=== PATIENT | female | born 1940 | race Caucasian/White ===

== ENCOUNTER 2024-03-09 20:42 | Outpatient (CLI) | payer MEDICARE, BC, SELFPAY ==
--- OUTSIDE RECORDS SUMMARY | 2024-03-09 20:46 | XMS_ITS | Clinical Summary ---
Author Name Unknown Organization [place] Address [facility] [place] [address] Care Team Providers Care Wool Dyer Name Role Phone Ace Sumner PA-C Primary Care Provider + [phone] Allergies Active Allergy Reactions Criticality Noted Date Comments Contrast Dye 09/14/2013 Epinephrine Other (See Comments) 10/30/2019 High doses. Medications Medication Sig Dispensed Refills Start Date End Date Status acetaminophen (TYLENOL) 325 MG tablet Take 325-650 mg by mouth every 6 hours as needed for mild pain Active apixaban ANTICOAGULANT (ELIQUIS) 5 MG tablet Take 5 mg by mouth 2 times daily Active atorvastatin (LIPITOR) 20 MG tablet Take 20 mg by mouth daily Active hydrochlorothiazide (HYDRODIURIL) 12.5 MG tablet Take 12.5 mg by mouth daily Active metoprolol succinate ER (TOPROL XL) 25 MG 24 hr tabletIndications:Atria l fibrillation with rapid ventricular response (H) Take 1 tablet (25 mg) by mouth daily for 30 days 30 tablet 11/12/2023 Active Active Problems Problem Noted Date Diagnosed Date Atrial fibrillation with rapid ventricular respo nse 11/10/2023 Acute congestive heart failu re, unspecified heart failure type 11/10/2023 Family History Medical History Relation Comments Breast Cancer No family hx of Ovarian Cancer No family hx of Social History Tobacco Use Types Packs/Day Years Used Date Smoking Tobacco: Never Smokeless Tobacco: Never Alcohol Use Standard Drinks/Week Comments No 0 (1 standard drink = 0.6 oz pur e alcohol) Adolescent Education Answer Date Record ed Getting School Help Needed Not on file 09/05 Sex and Gender Information Value Date Recorded Sex Assigned at Not on file Gender Identity Not on file Sexual Orientation Not on file Last Filed Vital Signs Vital Sign Reading Time Taken Comments Blood Pressure 154/85 11/13/2023 5:54 PM DISTRIBUTION TRANSFORMER ASSEMBLER Pulse 81 11/13/2023 5:54 PM [employer]ION TR[employer]FORMER ASSEMBLER Temperature 36.6 ??C (97.8 ??F) 11/13/2023 5:54 PM CS T Respiratory Rate 18 11/13/2023 5:54 PM [employer]ION TR[employer]ER ASSEMBLER Oxygen Saturation 93% 11/13/2023 8:15 PM [employer]ION TR[employer]ER ASSEMBLER Inhaled Oxygen Concentration - - Weight 92.1 kg (203 lb) 11/13/2023 5:54 PM [employer]ION TR[employer]FORMER ASSEMBLER Height 167.6 cm (5' 6) 11/10/2023 1:32 AM [employer] TR[employer]ER [employer]SEMBLER Body Mass Index 32.77 11/10/2023 1:32 AM [employer]ION TRANSFORMER ASSEMBLER Plan of Treatment Health Maintenance Due Date Last Done Comments ADVANCE CARE PLANNING 1941 ANNUAL REVIEW OF HM ORDERS 1941 DEXA 1941 HF ACTION PLAN 1941 LIPID 1941 ZOSTER IMMUNIZATION (1 of 2) 1991 RSV VACCINE ( & 60+) (1 - 1-dose 60+ series) 2001 FALL RISK ASSESSMENT 2006 ALT 07/30/2011 07/30/2010 DTAP/TDAP/TD IMMUNIZATION (1 - Tdap) 02/09/2018 02/08/2018, 01/02/2008, 03/07/1999 COVID-19 Vaccine ( season) 2023 02/28/2022, 09/19/2021, 01/30/2021, Additional history exists INFLUENZA VACCINE (#1) 2023 , 08/25/2021, 08/13/2020, Additional history exists PHQ-2 (once per calendar year) 2023 BMP 05/14/2024 11/13/2023, 10/23, 11/10/2023, Additional history exists MEDICARE ANNUAL WELLNESS VISIT 09/15/2024 09/15/2023, 09/02/2022, 07/01/2021 CBC 11/13/2024 11/13/2023, 10/23, 11/10/2023, Additional history exists Pneumococcal Vaccine: 65+ Years Completed 11/06/2015, 08/12/2011 TSH W/FREE T4 REFLEX Completed 11/09/2023 HPV IMMUNIZATION Aged Out No longer e ligible based on patient's age to complete this topic IPV IMMUNIZATION Aged Out No longer e ligible based on patient's age to complete this topic MENINGITIS IMMUNIZATION Aged Out No l onger eligible based on patient's age to complete this topic RSV MONOCLONAL ANTIBODY Aged Out No l onger eligible based on patient's age to complete this topic Procedures Procedure Name Priority Date/Time Associated Diagnosis Comments CBC WITH PLATELETS & DIFFERENTIAL STAT 11/13/2023 6:19 PM DISTRIBUTION TRANSFORMER ASSEMBLER BASIC METABOLIC PANEL STAT 11/13/2023 6:19 PM [employer]ION TR[employer]FORMER ASSEMBLER TSH WITH FREE T4 REFLEX STAT 11/09/2023 9:59 PM [employer]ION TR[employer]FORMER ASSEMBLER HEPATIC FUNCTION PANEL STAT 07/30/2010 10:15 AM CDT from Last 3 Months or Most Recently Relevant to Health Maintenance Results * (ABNORMAL) Basic metabolic panel (11/13/2023 6:19 PM DISTRIBUTION TRANSFORMER ASSEMBLER) [facility] Sodium 139 135 - 145 mmol/L 11/13/2023 6:47 PM [employer] Comment:Reference intervals for this test were updated on 08/17/2023 to more accurately reflect our healthy population. There may be differences in the flagging of prior results with similar values performed with this method. Interpretation of those prior results can be made in the context of the updated reference intervals. Potassium 4.3 3.4 - 5.3 mmol/L 11/13/2023 6:47 PM [employer] [facility] Chloride 101 98 - 107 mmol/L 11/13/2023 6:47 PM [employer] [facility] Carbon Dioxide (CO2) 27 22 - 29 mmol/L 11/13/2023 6:47 PM [employer] [facility] Anion Gap 11 7 - 15 mmol/L 11/13/2023 6:47 PM [employer] [facility] Urea Nitrogen 24.3(H) 8.0 - 23.0 mg/dL 11/13/2023 6:47 PM [employer] [facility] Creatinine 1.20(H) 0.51 - 0.95 mg/dL 11/13/2023 6:47 PM [employer] [facility] GFR Estimate 45(L) >60 mL/min/1. 73m2 11/13/2023 6:47 PM [employer] [facility] Calcium 9.1 8.8 - 10.2 mg/dL 11/13/2023 6:47 PM [employer] [facility] Glucose 103(H) 70 - 99 mg/dL 11/13/2023 6:47 PM [employer] Blood BLOOD SPECIMEN / Unknown Venipuncture / Unknown 11/13/2023 6:19 PM DIST[employer]BUTION TR[employer]FORMER ASSEMBLER 11/13/2023 6:25 PM DIST[employer]ION TR[employer]FORMER ASSEMBLER Jason Spann MD LAB - BLOOD ORDERABL ES LABORATORY [facility] [address] 1st floor, [address] [place] [address], [place] [phone] * TSH with free T4 reflex (11/09/2023 9:59 PM DISTRIBUTION TRANSFORMER ASSEMBLER) TSH 4.07 0.30 - 4.20 uIU/mL 11/09/2023 10:35 PM [employer] Blood BLOOD SPECIMEN / Unknown Venipuncture / Unknown 11/09/2023 9:59 PM DISTRI[employer]ION TR[employer]FORMER ASSEMBLER 11/09/2023 10:06 PM [employer]ION TR[employer]FORMER ASSEMBLER Jose Manuel Robledo MD LAB - BLO OD ORDERABLES LABORATORY [facility] [address] Lab (1st floor, no room number) [place] [address], [place] [phone] * Hepatic panel (07/30/2010 10:15 AM CDT) AST 26 0 - 45 U/L [facility] Protein Total 7.2 6.8 - 8.8 g/dL [facility] Albumin 3.8 3.3 - 4.9 g/dL [facility] ALT 18 0 - 50 U/L [facility] Alkaline Phosphatase 91 40 - 150 U/L [facility] Bilirubin Conjugated 0.0 0.0 - 0.3 mg/dL [facility] Bilirubin Delta 0.0 0.0 - 0.4 mg/dL [facility] Bilirubin Total 0.3 0.2 - 1.3 mg/dL [facility] 07/30/2010 10:1 5 AM CDT 07/30/2010 10:43 AM CDT Dutch Best MD LAB - BLOOD ORDERABL ES [facility] from Last 3 Months or Most Recently Relevant to Health Maintenance Advance Directives For more information, please contact: [phone] * Full Code (Latest Code Status on File) Date Activated Date Inactivated Comments 11/10/2023 1:23 AM 11/11/2023 5:26 PM All basic and advanced life-sustaining interventions are performed as appropriate Question Answer Comments Code status determined by: Discussion with tracy nt/ legal decision maker Care Teams Wool Dyer Relationship Specialty Start Date End Date Ace Sumner PA-C [facility] [address] [place] [address] PCP - General 08/12/11
--- OUTSIDE RECORDS SUMMARY | 2024-03-09 20:46 | XMS_ITS | Continuity of Care Document ---
Author Name Unknown Organization [facility] Address [address] [place] [address] Phone Care Team Providers Care Billboard Installer Name Role Phone Juan R Lopes MD Unavailable Unavailable Allergies, Adverse Reactions, Alerts Substance Reaction Status Criticality No Known Allergies Active No Inform ation Medications Medication Instructions Dosage Effective Dates (start - stop) Status Comments VITAMIN D3 (unknown strength) Not Available - Active LISINOPRIL (unknown strength) Not Available - Active Procedures Procedure Date Office/Outpatient Visit,[place] 2014 Advance Directives Directive Yes / No Effective Date File Name No Information Encounters Encounter Description Practice Location Reason(s) For Visit Diagnoses Date Provider Providers Copied on Encounter [facility], [address], [place], [id number], [place] tel:[phone] [facility] No Information 6 Moses Pete. [facility] [place], [address], [facility] [address], [place], [place], [id number] , [place]. [phone] Office/Outpat ient [facility], [address], [place], [id number], [place] tel:[phone] [facility] [place] pertension, Unspecified 5 Moses Pete. [facility], [address], [address], [place], [place], [id number] , [place]. [phone] Referring Provider: [facility] [address] [facility], [address], [place], [address]. tel:[phone] Family History Family Member Type Diagnosis Age At Onset No Information Payers Payer name Insurance type Covered democrat ID Authorcarolinaa scott(s) [employer] Medicare [facility] CI [id number] Social History Type Description Quantity Date Captured Comments Sex Female Smoking Status No Information Chief Complaint And Reason For Visit No Information Reason For Referral Reason For Referral No Information History Of Present Illness Encounter Date Complaint History Of Prese nt Illness No Information Functional Status Date Functional Assessmen t No Information Instructions Date Instruction Additional Infor mation Weight Management Related to Ove rweiebonyt Exercise education Related to Un specified Essential Hypertension Assessments Type Assessment Date No Information Patient Care Teams Name Effective Dates (start - stop) Status Members No Information
--- OUTSIDE RECORDS SUMMARY | 2024-03-09 20:46 | XMS_ITS | Continuity of Care Document ---
Author Name Unknown Organization [facility] Address [address] [address] [place] [address] Phone Care Team Providers Care Principal Consulting Engineer Name Role Phone Nadira Cantu NP Unavailable Unavaila ble Allergies, Adverse Reactions, Alerts Substance Reaction Status Criticality Gadolinium-Containing Contrast Media Acti ve No Information Medications Medication Instructions Dosage Effective Dates (start - stop) Status Comments Prilosec 20 mg capsule,delayed release take 1 capsule by oral route every day 30 minutes to 1 hour before a meal - Active Vitamin D2 50,000 unit capsule take 1 capsule by oral route every week - Active metoprolol tartrate 50 mg tablet take 0.5 tablet by oral route 2 times every day with meals 25 MG - Active lisinopril 20 mg-hydrochlorothiaz melquiades 25 mg tablet take 1 tablet by oral route every day 1.00 tablet - Active aspirin 81 mg tablet,delayed release take 1 tablet by oral route every day 81 MG - Active Procedures Procedure Date Init Hosp-da E&m Mod Severity 3 Offic/outpt E&m New Mod Sever 2 FibroScan Ultrasound, Abdominal, Limited 16 Offic/outpt E&m New Mod-hi Routine Serum Collection Gg; Iga, Igd, Igg, Igm, Ea Iron Iron Binding Capacity Ferritin Hepatitis B Surface Antibody Ag-immunoassay; Hep B Surface 6 Hep B Core Antibody Hepatitis A Antibody; Igg & Ig 16 Bilirubin; Direct Comp Metabolic Panel Bld Ct; Hg & Platelet Ct Autom 16 Advance Directives Directive Yes / No Effective Date File Name No Information Encounters Encounter Description Practice Location Reason(s) For Visit Diagnoses Date Provider Providers Copied on Encounter Init Hosp-da E&m Mod Severity [facility], [address] [address], [place], [id number], [place] tel:[phone] [facility] No Information 3 Pepe Waddell. [address] [facility], [address], [id number], [place]. [phone] Referring Provider: Ace Whipple, [address] [place] [address], [address] . tel:[phone] Offic/outpt E&m New Mod Sever [facility], [address] [address], [place], [id number], [place] tel:[phone] [facility] GI Symptoms or Concerns (chief complaint) DyspepsiaAbdom inal wall bulge Feb- 2 Amy Wilson. [address], [id number], [place]. [phone] Referring Provider: Ace Whipple, [address] [place] [address], [address] . tel:[phone] [facility], [address] [address], [place], [id number], [place] tel:[phone] [facility] No Information 0 2 Christina Mann. [address] [facility], [address], [id number], [place]. tel:[phone] [facility], [address] [address], [place], [id number], [place] tel:[phone] [facility] Inflammatory liver disease, unspecified 0 6 Desmond Vega. [address] [facility], [address], [id number], [place]. tel:[phone] Referring Provider: Ace Whipple, [address] [place], [address] . tel:[phone] [facility] [place], [address] [address], [place], [place], [id number], [place] tel:[phone] [facility] No Information lEoisa OMALLEY Barber. [address], [id number], [place]. tel:[phone] Referring Provider: Ace Whipple, [address] [place], [address] . tel:[phone] Offic/outpt E&m New Mod-hi [facility] [place], [address] [address], [place], [place], [id number], [place] tel:[phone] [facility] GI Symptoms or Concerns (chief complaint) Abdominal pain, unspecified locationHepati tisDietary counseling and surveillance Eloisa OMALLEY [facility]. [address], [id number], [place]. tel:[phone] Referring Provider: Balaji Villarreal, [address] [place] [address], [place], [address]. tel:[phone] Family History Family Member Type Diagnosis Age At Onset Mother Problem (finding) Cancer, basal cell Daughter Problem (finding) Irritable bowel syndrom e Sister Problem (finding) Sister Problem (finding) malignant melanoma Sister Problem (finding) Cancer, basal cell Father Problem (finding) Daughter Problem (finding) Alive and well Mother Problem (finding) malignant melanoma Brother Problem (finding) Immunizations Vaccine Date Status Comments SARS-COV-2 (COVID-19) vaccin e, mRNA, spike protein, LNP, preservative free, 30 mcg/0.3mL dose administered Note: [facility] bi-direct ional interface ; Source: Other Registry influenza, seasonal vaccine, quadrivalent, adjuvanted, .5mL dose, preservative free administered Note: [facility] bi-di rectional interface ; Source: Other Registry SARS-COV-2 (COVID-19) vaccin e, mRNA, spike protein, LNP, preservative free, 30 mcg/0.3mL dose administered Note: [facility] bi-direct ional interface ; Source: Other Registry SARS-COV-2 (COVID-19) vaccin e, mRNA, spike protein, LNP, preservative free, 30 mcg/0.3mL dose administered Note: [facility] bi-direct ional interface ; Source: Other Registry influenza, high dose seasona l, preservative-free administered Note: [facility] bi-direct ional interface ; Source: Other Registry Afluria Qd administered Note: [facility] bi-directional interface ; Source: Other Registry tetanus and diphtheria toxoi ds, adsorbed, preservative free, for adult use (5 Lf of tetanus toxoid and 2 Lf of diphtheria toxoid) administered Note: [facility] bi-direct ional interface ; Source: Other Registry Prevnar administered Note: [facility] bi-d irectional interface ; Source: Other Registry Pneumococcal conjugate PCV administere d Source: Other Provider influenza, high dose seasona l, preservative-free administered Note: [facility] bi-direct ional interface ; Source: Other Registry influenza, high dose seasona l, preservative-free administered Note: [facility] bi-direct ional interface ; Source: Other Registry Pneumovax 23 administered Note: [facility] bi-d irectional interface ; Source: Other Registry Influenza, seasonal, injecta ble, preservative free administered Note: [facility] bi-direct ional interface ; Source: Other Registry Pneumo (2 yrs or older)(PPV) administered Source: Other Provider Influenza, seasonal, injectable administe red Note: [facility] bi- directional interface ; Source: Other Registry Influenza, seasonal, injectable administe red Note: [facility] bi- directional interface ; Source: Other Registry Influenza, seasonal, injectable administe red Note: [facility] bi- directional interface ; Source: Other Registry Influenza, seasonal, injectable administe red Note: [facility] bi- directional interface ; Source: Other Registry influenza virus vaccine, unspecified formulation administered Note: [facility] bi-di rectional interface ; Source: Other Registry Payers Payer name Insurance type Covered constitution party ID Authoriza tion(s) Medicare NGS MB [id number] Blue Cross Medicare Supplement BL [id number] Social History Type Description Quantity Date Captured Comments Sex Female Smoking Status No Information Chief Complaint And Reason For Visit No Information Reason For Referral Reason For Referral No Information Plan Of Treatment Date Type Action Status Goal Lifestyle education regardin g diet completed Referral Ordered: FibroScan Appointment date/timeframe: 11/10/2016 ordered Referral Ordered: Ultrasound Liver Appointment date/timeframe: 11/10/2016 ordered Future Order: Lab Order Antimito chondrial Ab (AMA), Qn ([id number]), Body Site: Right Arm, Ordered on: Ordered History Of Present Illness Encounter Date Complaint History Of Prese nt Illness GI Symptoms or Concerns This pat toni is a pleasant 81-year-old female who is seen at the request of Ace CHENG for evaluation of abdominal pain. Patient reports some episodes of epigastric pain, nausea, and vomiting that have occurred over the past several months. These episodes occur once per month or less. She describes burning and indigestion in the epigastrium with associated nausea, but improved when she induces vomiting. She is not identified any specific triggers for these symptoms. She occasionally has some lower abdominal pain and constipation, but this is currently well controlled. Patient is also concerned about a bulge in her lower abdomen that makes her appear bloated. This is constant and does not seem to flare up after she eats. It is not painful. CT of the abdomen and pelvis with contrast was performed in December 2021 and showed extensive diverticulosis with some associated wall thickening in the mid sigmoid colon. Patient does not remember if she was put on antibio GI Symptoms or Concerns Very ple asant 76 year old woman presents for evaluation of abnormal abdominal imaging. Patient noted ?ventral hernia for which she sought medical attention at PCP. She underwent non-contrast CT followed by liver ultrasound. Both showed heterogenous appearance of liver. It was advised that patient gets liver MRI but that was deferred due to the presence of metal devise. Patient was referred to the hepatology clinic for further evaluation. LFTs from last year were normal. No prior histroy of chronic liver disease. No history of jaundices, ascites, GI bleeding or encephalopathy. No history of excessive alcohol use, blood transfusion, IV drugs use or tattoos. No family history of chronic liver disease. Patient has borderline hypertension with BMI of 36. No history of diabetes or hyperlipidemia. Functional Status Date Functional Assessmen t No Information Instructions Date Instruction Additional Infor mation follow-up visit with Elisabeth Amin MD 6 Months FibroScan Lifestyle education regarding di et Related to Dietary counseling and surveillance Assessments Type Assessment Date No Information Patient Care Teams Name Effective Dates (start - stop) Status Members No Information
--- OUTSIDE RECORDS SUMMARY | 2024-03-09 20:46 | XMS_ITS | Referral Summary ---
Author Name Unknown Organization [place] Address [facility] [place] [address] Care Team Providers Care Community Aide Name Role Phone Ace Sumner PA-C Primary Care Provider + [phone] Allergies Active Allergy Reactions Criticality Noted Date [...] failu re, unspecified heart failure type 11/10/2023 Social History Tobacco Use Types Packs/Day Years [...] Comments Blood Pressure 154/85 11/13/2023 5:54 PM [facility] CLERK Pulse 81 11/13/2023 5:54 PM [facility] CLERK Temperature 36.6 ??C (97.8 ??F) 11/13/2023 5:54 PM CS T Respiratory Rate 18 11/13/2023 5:54 PM [facility]ALLY CLERK Oxygen Saturation 93% 11/13/2023 8:15 PM [facility] CLERK Inhaled Oxygen Concentration - - Weight 92.1 kg (203 lb) 11/13/2023 5:54 PM [facility] CLERK Height 167.6 cm (5' 6) 11/10/2023 1:32 AM [facility] CLERK Body Mass Index 32.77 11/10/2023 1:32 AM [facility] CLERK Plan of Treatment Not on file Procedures Procedure Name Priority Date/Time Associated Diagnosis Comments CBC WITH PLATELETS & DIFFERENTIAL STAT 11/13/2023 6:19 PM [facility] CLERK BASIC METABOLIC PANEL STAT 11/13/2023 6:19 PM [facility] CLERK TSH WITH FREE T4 REFLEX STAT 11/09/2023 9:59 PM [facility] CLERK HEPATIC FUNCTION PANEL STAT 07/30/2010 10:15 AM CDT from Last 3 Months or Most Recently Relevant to Health Maintenance Results * (ABNORMAL) Basic metabolic panel (11/13/2023 6:19 PM [facility]ARF TALLY CLERK) [facility] Signature Sodium 139 135 - 145 mmol/L 11/13/2023 6:47 PM [facility] Comment:Reference intervals for this test were updated on 08/17/2023 to more accurately reflect our healthy population. There may be differences in the flagging of prior results with similar values performed with this method. Interpretation of those prior results can be made in the context of the updated reference intervals. Potassium 4.3 3.4 - 5.3 mmol/L 11/13/2023 6:47 PM [facility] Chloride 101 98 - 107 mmol/L 11/13/2023 6:47 PM [facility] Carbon Dioxide (CO2) 27 22 - 29 mmol/L 11/13/2023 6:47 PM [facility] Anion Gap 11 7 - 15 mmol/L 11/13/2023 6:47 PM [facility] Urea Nitrogen 24.3(H) 8.0 - 23.0 mg/dL 11/13/2023 6:47 PM [facility] Creatinine 1.20(H) 0.51 - 0.95 mg/dL 11/13/2023 6:47 PM [facility] GFR Estimate 45(L) >60 mL/min/1. 73m2 11/13/2023 6:47 PM [facility] Calcium 9.1 8.8 - 10.2 mg/dL 11/13/2023 6:47 PM [facility] Glucose 103(H) 70 - 99 mg/dL 11/13/2023 6:47 PM [facility] Blood BLOOD SPECIMEN / Unknown Venipuncture / Unknown 11/13/2023 6:19 PM [facility] CLERK 11/13/2023 6:25 PM [facility] CLERK Jason Spann MD LAB - BLOOD ORDERABL ES LABORATORY [facility] [address], [address] [place] [address], [place] [phone] * TSH with free T4 reflex (11/09/2023 9:59 PM WHARF TALLY CLERK) Pathologist [facility] TSH 4.07 0.30 - 4.20 uIU/mL 11/09/2023 10:35 PM [facility] Blood BLOOD SPECIMEN / Unknown Venipuncture / Unknown 11/09/2023 9:59 PM [facility]ALLY CLERK 11/09/2023 10:06 PM [facility]ALLY CLERK Jose Manuel Robledo MD LAB - BLO OD ORDERABLES LABORATORY [facility] [address] Lab (1st floor, no room number) [place] [address], [place] [phone] * Hepatic panel (07/30/2010 10:15 AM CDT) [...] Advance Directives For more information, please contact: [phone] * Full Code (Latest Code Status on File) Date Activated Date Inactivated Comments 11/10/2023 1:23 AM 11/11/2023 5:26 PM All basic and advanced life-sustaining interventions are performed as appropriate Question Answer Comments Code status determined by: Discussion with patie nt/ legal decision maker Care Teams Community Aide Relationship Specialty Start Date End Date Ace Sumner, [place] [id number] [place] [address] PCP - General 08/12/11
--- OUTSIDE RECORDS SUMMARY | 2024-03-09 20:47 | XMS_ITS | Clinical Summary ---
Author Name Unknown Organization [employer] [facility] Address [place], [place] [address] Care Team Providers Care Ironer Name Role Phone Ace Sumner Primary Care Provider [phone] Allergies Active Allergy Reactions Criticality Noted Date Comments Epinephrine Tremors 10/30/2019 High doses Iodinated Contrast Media Anaphylaxis High 01/30/2010 Hives and hypertensive crisis Medications Medication Sig Dispensed Refills Start Date End Date Status MULTIVITAMINS (MULTIVITAMIN ORAL) Take by mouth. A ctive NebulizerIndication s:Cough,Wheezing,Br onchitis Nebulizer, disposable neb kit x 4, reuseable neb kit x 1, mask x 1, filters x 1. Frequency of use: 4x daily; Medication: albuterol 1 Device 02/07/2019 Active albuterol HFA (PRO-AIR; VENTOLIN; PROVENTIL) 90 mcg/actuation inhalerIndications: Bronchitis Inhale 1-2 Puffs by mouth every 4 hours if needed for Shortness of Breath 1st choice or Wheezing 1st choice. 1 Each 11/06/2021 Active inhalational spacing deviceIndications:B ronchitis For home use. 1 Each 11/06/2021 Active Restasis 0.05 % ophthalmic emulsion Place 1 Drop into both eyes two times daily. 10/04/2022 Active albuterol (PROVENTIL; VENTOLIN) 0.042% neb solutionIndications :Acute cough,Bronchitis,Vi ral illness,Upper respiratory tract infection, unspecified type Inhale 3 mL (1.25 mg) via a nebulizer every 4 hours if needed (wheezing). 75 mL 3 03/24/2023 Active atorvastatin (LIPITOR) 20 mg tabletIndications:M ixed hyperlipidemia Take 1 Tablet (20 mg) by mouth at bedtime. 90 Tablet 3 09/15/2023 Active apixaban (Eliquis) 5 mg tabletIndications:L ongstanding persistent atrial fibrillation (HC) Take 1 Tablet (5 mg) by mouth two times daily. 180 Tablet 2 11/24/2023 Active medication order composerIndications :Vitamin deficiency Vitamin D3 with K taking 2 caps QD. 11/30/2023 Active mupirocin (BACTROBAN OINTMENT) ointmentIndications :Sore in nose Apply topically to affected area(s) three times daily. 22 g 1 12/20/2023 Active ergocalciferol (Vitamin D2) 50,000 unit capsuleIndications: Vitamin D deficiency Take 1 Capsule (50,000 units) by mouth once weekly. 12 Capsule 12/21/2023 Active predniSONE (DELTASONE) 20 mg tabletIndications:C ontrast media allergy Take 60 mg (3 tablets) at bedtime the evening before your procedure, and take 60 mg (3 tablets) the morning of your procedure 6 Tablet 12/22/2023 Active metoprolol succinate (TOPROL XL) 25 mg Sustained-Release tabletIndications:A trial fibrillation, unspecified type (HC) Take 1.5 Tablets (37.5 mg) by mouth once daily. 135 Tablet 3 02/09/2024 Active hydroCHLOROthiazide 12.5 mg tabletIndications:H TN (hypertension), benign,Bilateral lower extremity edema Take 1 Tablet (12.5 mg) by mouth once daily. 90 Tablet 3 09/15/2023 4 Discontinue d(*Med complete/Re gimen complete/Le tom of care change) metoprolol succinate (TOPROL XL) 25 mg Sustained-Release tabletIndications:A trial fibrillation, unspecified type (HC) Take 1.5 Tablets (37.5 mg) by mouth once daily. 135 Tablet 3 12/07/2023 4 Discontinue d(Reorder (E-cancel not sent)) Active Problems Problem Noted Date Diagnosed Date Acute congestive heart failu re, unspecified heart failure type 12/20/2023 Stage 3b chronic kidney disease 12/20/2023 Sleep apnea 10/31/2023 Osteoporosis without current pathological fractu re 09/29/2023 Atrial fibrillation, unspecified type 09/15/2023 Overview: Prior holter and EKG showed PAT and PAC's. 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 Diverticulosis in the sigmoid colon. 4 mm tubular adenoma in the cecum Osteopenia 10/10/2013 Obesity, Class II, BMI 35-39.9 05/25/2012 Vitamin D deficiency 08/12/2011 Hepatic cyst 01/30/2010 HTN (hypertension), benign 01/30/2010 Resolved Problems Problem Noted Date Diagnosed Date Resolved Date Sleep apnea HST- 09/30/2020 AHI-19 PSG 01/09/2016 AHI-20 01/20/2017 07/16/2021 Acute diverticulitis 10/16/2016 023 Hyperlipidemia 11/09/2014 10/09/2019 Gluten intolerance 08/12/2011 3 Encounters Date Type Department Care Team Description 03/08/2024 2:00 PM CDT Nurse/Clinic Staff Only [facility] [address] [place] [address] Cardiovascular Diagnostic Testing 03/08/2024 Telephone [facility] [address] [place] [address] [facility] 03/08/2024 Travel 03/08/2024 Telephone [facility] [address] [place] [address] Boogie Jordan MD Medication Management 03/06/2024 8:00 AM CDT Office Visit [facility] [address] [facility] [address] [address] [place] [address] Boogie Jordan MD Consult (Afib Discuss ablation Ref: Isatu Марина. Pt states feeling tired, can't walk very far. Some times notices her heart go faster but only when she has a gas bubble. ) 03/06/2024 Travel 02/09/2024 1:00 PM CDT Ancillary Procedure [facility] [address] [place] [address] 02/09/2024 Travel 02/09/2024 Telephone [facility] [address] [facility] [address] [place] [address] Tej Garcia MD Results (Zio monitor) 02/08/2024 Orders Only [facility] [address] [place] [address] Sravani Galloway 1 scan: (1-Ord) Zio Final Report 01/31/2024 Telephone [facility] [address] [place] [address] Boogie Jordan MD Appointment 01/18/2024 2:00 PM WAREHOUSE MAN Nutrition/Dietici an [facility] [address] [place] [address] Medical Nutrition Therapy 01/18/2024 Orders Only [facility] [address] [place] [address] Tej Garcia MD 1 scan: (1-Ord) EKG [facility] 01/17/24 01/17/2024 11:30 AM WAREHOUSE MAN Office Visit [facility] [address] [place] [address] Tej Garcia MD Dizzy 01/17/2024 Travel 01/05/2024 Telephone [facility] [address] [facility] [address] [place] [address] Boogie Jordan MD Reschedule EP Procedure 01/04/2024 Telephone [facility] [address] [place] [address] Ace Sumner PA Results (feels like she is missing some results ) 01/03/2024 7:30 AM WAREHOUSE MAN Office Visit [facility] [address] [facility] [address] [place] [address] Karishma Lemons, ASSISTANT BANQUET MANAGER Consult; Medication Management 01/03/2024 Travel 12/31/2023 Orders Only [address] [address] Ace Sumner PA 1 scan: (1-Ord) EKG [facility] 12/20/23 12/22/2023 9:00 AM WAREHOUSE MAN Nurse/Clinic Staff Only [address] [address] Blood Pressure (137/66 P:82) 12/22/2023 Travel 12/21/2023 4:00 PM WAREHOUSE MAN Nurse/Clinic Staff Only [facility] [address] [place] [address] Blood Pressure 12/21/[address] [address] Ace Sumner PA Blood Pressure 12/21/2023 Orders Only [address] [address] Ace Sumner PA <No scans attached> 12/20/2023 8:45 AM WAREHOUSE MAN Office Visit [address] [place] [address] Ace Sumner PA Hospital F/U (Labs per cardiologists, she is fasting) 12/20/2023 Travel 12/17/2023 Telephone [facility] [address] [facility] [address] [place] [phone] Lynne Estrada RN EP Procedure 12/16/2023 Telephone [facility] [address] [facility] [address] [place] [phone] Isatu Parish NP Results (Potassium) 12/15/2023 Telephone [facility] [address] [place] [address] Hay Pastor MD Error-please disregard 12/14/2023 10:30 AM WAREHOUSE MAN Office Visit [facility] [address] [place] [address] Hay Pastor MD Sleep Follow-up 12/14/[address] [address] Ace Sumner PA Medication Problem 12/14/[address] [address] Ace Sumner PA Follow Up (Report for PROSPER Delgadillo/) 12/14/2023 Travel 12/10/2023 11:42 AM WAREHOUSE MAN Anesthesia Event [facility] [address] [place] [address] Morris Lin MD 12/10/2023 10:04 AM WAREHOUSE MAN - 12/10/2023 2:25 PM WAREHOUSE MAN Hospital Encounter [facility] [address] [place] [address] Isatu Parish NP Lewandowski, Olivia Atrial fibrillation, unspecified type (HC) Discharge Disposition: Home Self Care 12/10/2023 Travel from Last 3 Months Immunizations Name Administration Dates Next Due AMB Influenza, IIV4 PF (=>6 mos Flulaval,Fluzone Fluarix)(Flu Clinic Only) 08/13/2020,08/13/2020 COVID-19 vaccine (AbilTo 30mcg/0.3mL) PF, MDV 09/19/2021,01/30/2021,01/09/2021 Influenza Virus, Unspecified 09/19/1998 Influenza, High-dose Inactivated 09/10/2015,10/22 Influenza, IIV3 (Age >=3 years) 10/13/20 13,09/20/2012,08/12/2011,2004,10/23/2004,10/04/2003,10/27/2002 Influenza, IIV4 08/22/2018 Influenza, Inactivated AIIV4 (Age 65+ Years) Preserv Free 09/02/2022,08/25/2021 Influenza, Inactivated IIV3 (Age 65+ Years) Preserv Free 08/17/2019 Pneumococcal Poly,23-Valent (Pneumovax) 08/12/2011 Pneumococcal conj 13-Valent (Prevnar 13) 11/06/2015 Td (Age >=7 Years) 01/02/2008,03/07/1999 Td, Preservative Free (age > = 7 Years) 02/08/2018 Family History Medical History Relation Name Comments Other Brother Juma COPD Stroke Brother Juma and Other Daughter David Baez [employer] Heart Disease Father NM and Other Maternal Grandfather probabl y old age Stroke Maternal Grandmother Cancer Mother skin Heart Disease Paternal Grandfather o f heart disease Cancer Paternal Grandmother ?? Cancer Sister 1 Shelby at 52 of c ancer in carotid Stroke Sister 2 Laine and Dementia Sister 3 Cheyanne Other Sister 3 Cheyanne Fibromyalgia Relation Name Status Comments Brother Juma Daughter David Baez Alive Father Maternal Grandfather Maternal Grandmother Mother Paternal Grandfather Paternal Grandmother Sister 1 Shelby Sister 2 Laine Sister 3 Cheyanne Social History Tobacco Use Types Packs/Day Years Used Date Smoking Tobacco: Never Passive Smoke Exposure: Never Smokeless Tobacco: Never Tobacco Cessation:Counseling Given: Not Answered Alcohol Use Standard Drinks/Week Comments Not Currently 0 (1 standard drink = 0.6 oz pur e alcohol) PHQ-2 Answer Date Recorded PHQ-2 TOTAL SCORE 1 09/15/2023 Social Connections Answer Date Recorded Frequency of Communication with Friends and Fami ly 0 09/29/2023 Financial Resource Strain Answer Date R ecorded Difficulty of Paying Living Expenses 3 09/29/2023 Difficulty of Paying Living Expenses Not on file 09/29/2023 Food Insecurity Answer Date Recorded Worried About Running Out of Food in the Last Ye ar 1 09/29/2023 Transportation Needs Answer Date Record ed Lack of Transportation (Medical) 1 09/29/2023 Housing Stability Answer Date Recorded Unable to Pay for Housing in the Last Year 1 09/29/2023 Sex and Gender Information Value Date Recorded Sex Assigned at Not on file Gender Identity Not on file Sexual Orientation Not on file Obstetrics History Last Filed Vital Signs Vital Sign Reading Time Taken Comments Blood Pressure 130/70 03/06/2024 8:01 AM CDT Pulse 80 03/06/2024 8:01 AM CDT Temperature 36.8 ??C (98.2 ??F) 12/10/2023 10:[address] Respiratory Rate 16 12/10/2023 1:15 PM WAREHOUSE MAN Oxygen Saturation 97% 03/06/2024 8:01 AM CDT Inhaled Oxygen Concentration - - Weight 94.4 kg (208 lb 3.2 oz) 03/06/2024 8:01 A M CDT Height 163.8 cm (5' 4.5) 03/06/2024 8:01 AM CDT Body Mass Index 35.19 03/06/2024 8:01 AM CDT Plan of Treatment Upcoming Encounters Date Type Department Care Team (Late st Contact Info) Description 03/20/2024 8:00 AM CDT Telemedicine [facility] [address] [place] [address] Hay Pastor MD [address] [place] [address] 04/11/2024 1:00 PM CDT Nutrition/Aws Developer [facility] [address] [place] [address] [place] [address] 08/28/2024 8:30 AM CDT Office Visit [facility] [address] [facility] [address] [place] [address] Boogie Jordan MD [address] [place] [address] Health Maintenance Due Date Last Done Comments Zoster (shingles) series for age 50+ (1 of 2) 1991 COVID-19 vaccine series ( season) 2023 02/28/2022, 09/19/2021, 01/30/2021, Additional history exists Influenza for age 65+ 07/23/2024 09/02/2022 , 08/25/2021, 08/13/2020, Additional history exists Depression screening for age 12+ 09/15/2024 09/15/2023, 08/11/2023, 09/05/2022, Additional history exists Medicare Wellness for age 65+ 09/15/2024, 09/02/2022, 07/01/2021, Additional history exists BMI (ht and wt on same day) for age 18+ 03/06/2025 03/06/2024, 12/20/2023, 12/14/2023, Additional history exists Tetanus booster 02/09/2028 02/08/2018, 12/23, 03/07/1999 Tdap Completed 01/02/2008 (Comp leted outside of [facility]) Pneumococcal series for age 65+ Completed 5, 08/12/2011 DEXA/DXA scan for age 65+ Completed 2022, 07/24/2021, 02/16/2018, Additional history exists Procedures Procedure Name Priority Date/Time Associated Diagnosis Comments EKG 12 LEAD Routine 03/08/2024 Persistent atrial fibrillation (HC) EKG 12 LEAD Routine 03/06/2024 7:52 AM CDT Atrial tachycardia (HC) Atrial fibrillation, unspecified type (HC) PVC (premature ventricular contraction) ECHO TTE COMPLETE WO CONTRAST Routine 02/09/2024 1:37 PM CDT PAF (paroxysmal atrial fibrillation) (HC) Cardiomyopathy, unspecified type (HC) EXTENDED HOLTER Routine 02/08/2024 PAF (paroxysmal atrial fibrillation) (HC) EKG 12 LEAD Routine 01/17/2024 PAF (paroxysmal atrial fibrillation) (HC) PROTEIN/CREAT RATIO,URINE Routine 01/03/2024 9:15 AM WAREHOUSE MAN Stage 3a chronic kidney disease (HC) URINE ALBUMIN TO CREATININE RATIO, RANDOM Routine 01/03/2024 9:14 AM WAREHOUSE MAN Stage 3a chronic kidney disease (HC) ALBUMIN Routine 01/03/2024 8:29 AM WAREHOUSE MAN Stage 3a chronic kidney disease (HC) BASIC METABOLIC PANEL Routine 01/03/2024 8:29 AM WAREHOUSE MAN Stage 3a chronic kidney disease (HC) VITAMIN D 25 (DEFICIENCY) Routine 12/20/2023 9:51 AM WAREHOUSE MAN Vitamin D deficiency EKG 12 LEAD Routine 12/20/2023 Atrial fibrillation, unspecified type (HC) ECHO FRANCESCA WO CONTRAST W COLOR W LTD DOPPLER Routine 12/10/2023 12:12 PM WAREHOUSE MAN Atrial fibrillation, unspecified type (HC) EKG 12 LEAD Post Op 12/10/2023 12:01 PM WAREHOUSE MAN POTASSIUM,ISTAT Timed 12/10/2023 10:43 AM WAREHOUSE MAN EKG 12 LEAD Preop 12/10/2023 10:29 AM WAREHOUSE MAN XR DXA BONE DENSITY 2 SITES AXIAL Routine 09/22/2023 8:22 AM CDT Osteopenia, unspecified location Menopause from Last 3 Months or Most Recently Relevant to Health Maintenance Results * EKG 12 LEAD (03/08/2024) Only the most recent of5 resultswithin the time period is included. Boogie Jordan MD EKG ORD * ECHO TTE COMPLETE WO CONTRAST (02/09/2024 1:37 PM CDT) AORTIC VALVE MEAN PG 3 mmHg EJECTION FRACTION 47 % PEAK TR VELOCITY 2.6 m/s LVEDD 5.3 cm EJECTION FRACTION 50 - 55% Anatomical Region Laterality Modality Ultrasound 02/09/2024 1:08 PM CDT Narrative 02/09/2024 2:01 PM CDT ECHOCARDIOGRAM KAYLIE DAVIDSON ? Accession#: ?? [id number] : ?1940 83 years Study Date: ?? 02/09/2024 1:08:14 PM Gender: F ?BP: ? 114/68 mmHg Height: 163.00 cm ?BSA: ?1.95 m? ? ? Weight: 90.00 kg ? Tech: ? MSR ? Referring MD: TEJ GARCIA Site: ? [facility] Reading Location: Mobile OP Patient Location: Outpatient. Procedure: 2D, Color Doppler and Spectral Doppler. Indication for study: AF (paroxysmal atrial fibrillation) Cardiomyopathy, unspecified type Cardiac Rhythm: Sinus bradycardia.Study quality: Fair. Final Impressions: 1. Normal LV size, borderline wall thickness, low normal global systolic function with an estimated EF of 50 - 55%. 2. Right ventricular cavity size is normal, global systolic RV function is normal. 3. Mildly enlarged left atrium. 4. The aortic valve is trileaflet and sclerotic, no stenosis and no regurgitation. Comparison Compared to prior exam report of 10/19/2023: - The left ventricular function has increased. Patient in sinus rhythm now. Chamber Sizes and Function Normal left ventricular size, borderline wall thickness, low normal global systolic function with an estimated EF of 50 - 55%. Left atrial size is mildly enlarged. Right ventricular cavity size is normal, global systolic RV function is normal. RV wall thickness is normal. The right atrium is normal. The pulmonary artery is of normal size and origin. The sinus of Valsalva is normal sized. The ascending aorta is normal sized. Valves, RV Pressures and Diastolic Function The aortic valve is trileaflet and sclerotic, no stenosis and no regurgitation. The mitral valve is normal in structure, trace mitral regurgitation. Spectral Doppler shows Grade 1 pattern of LV diastolic filling. The tricuspid valve is normal in structure. Tricuspid regurgitation is mild regurgitation. The tricuspid regurgitant velocity is 2.6 m/s, the estimated right ventricular systolic pressure is 27 mmHg plus right atrial pressure. The pulmonic valve is normal. No pulmonary regurgitation. Masses, Effusion, Shunts There is no pericardial effusion. The inferior vena cava is normal sized, respiratory size variation greater than 50%. Interatrial septum is not well visualized. MEASUREMENTS AND CALCULATIONS 2-D Measurements and LV Function: LVID (d) 5.2 cm LV FS% (2D) ?? 24 % LVID (s) 4.0 cm LVOT diameter 2.3 cm IVS (d) ??1.2 cm HR ?56 bpm LVPW (d) 1.2 cm LA Vol index ??47 ml/m2 Ao Sinus 3.6 cm RV Max 4C (d) 3.6 cm Asc Ao ?? 3.6 cm Diastology: Mitral ?Tissue Doppler E Peak 0.4 m/s ??e', Septum ? 0.04 m/s A Peak 0.7 m/s ??e', Lateral ?0.04 m/s E/A ?0.5 ?E/e' Average ?? 8.71 DT ? 175 msec Aortic Valve: Vmax ? 1.1 m/s ??ARNEL (V) ?? 3.22 cm? ? ? VTI ?0.24 m ?? ARNEL (I) ?? 3.27 cm? ? ? LVOT V max 0.9 m/s ??Max PG ?5 mmHg LVOT VTI ?? 0.18 m ?? Mean PG ?? 3 mmHg SV ? 78 ml ?Dim Index 0.78 SV index ?? 40 ml/m? ? ? CO ?4.3 l/min ?CI ?2.2 l/min/m? ? ? Mitral Valve: MVA ?4.3 cm? ? ? MV P 1/2 51 msec Tricuspid Valve and estimated PA pressures: TR Vmax 2.6 m/s TAPSE 2.5 cm TR maxG 27 mmHg . This study was interpreted by an [facility] accredited facility. ??Final ?? Procedure Note Dutch Morales MD - 02/09/2024 ECHOCARDIOGRAM KAYLIE DAVIDSON : 1940 83 years Study Date: 02/09/2024 1:08:14 PM Gender: F BP: 114/68 mmHg Height: 163.00 cm BSA: 1.95 m? ? ? Weight: 90.00 kg Tech: DER Referring MD: TEJ GARCIA Site: [facility] Reading Location: [place] OP Patient Location: Outpatient. Procedure: 2D, Color Doppler and Spectral Doppler. Indication for study: AF (paroxysmal atrial fibrillation) Cardiomyopathy,unspecified type Cardiac Rhythm: Sinus bradycardia.Study quality: Fair. Final Impressions: 1. Normal LV size, borderline wall thickness, low normal global systolicfunction with an estimated EF of 50 - 55%. 2. Right ventricular cavity size is normal, global systolic RV functionis normal. 3. Mildly enlarged left atrium. 4. The aortic valve is trileaflet and sclerotic, no stenosis and noregurgitation. Comparison Compared to prior exam report of 10/19/2023: - The left ventricular function has increased. Patient in sinus rhythmnow. Chamber Sizes and Function Normal left ventricular size, borderline wall thickness, low normal globalsystolic function with an estimated EF of 50 - 55%. Left atrial size ismildly enlarged. Right ventricular cavity size is normal, global systolicRV function is normal. RV wall thickness is normal. The right atrium isnormal. The pulmonary artery is of normal size and origin. The sinus ofValsalva is normal sized. The ascending aorta is normal sized. Valves, RV Pressures and Diastolic Function The aortic valve is trileaflet and sclerotic, no stenosis and noregurgitation. The mitral valve is normal in structure, trace mitralregurgitation. Spectral Doppler shows Grade 1 pattern of LV diastolicfilling. The tricuspid valve is normal in structure. Tricuspidregurgitation is mild regurgitation. The tricuspid regurgitant velocity is2.6 m/s, the estimated right ventricular systolic pressure is 27 mmHg plusright atrial pressure. The pulmonic valve is normal. No pulmonaryregurgitation. Masses, Effusion, Shunts There is no pericardial effusion. The inferior vena cava is normal sized,respiratory size variation greater than 50%. Interatrial septum is notwell visualized. MEASUREMENTS AND CALCULATIONS 2-D Measurements and LV Function: LVID (d) 5.2 cm LV FS% (2D) 24 % LVID (s) 4.0 cm LVOT diameter 2.3 cm IVS (d) 1.2 cm HR 56 bpm LVPW (d) 1.2 cm LA Vol index 47 ml/m2 Ao Sinus 3.6 cm RV Max 4C (d) 3.6 cm Asc Ao 3.6 cm Diastology: Mitral Tissue Doppler E Peak 0.4 m/s e', Septum 0.04 m/s A Peak 0.7 m/s e', Lateral 0.04 m/s E/A 0.5 E/e' Average 8.71 DT 175 msec Aortic Valve: Vmax 1.1 m/s ARNEL (V) 3.22 cm? ? ? VTI 0.24 m ARNEL (I) 3.27 cm? ? ? LVOT V max 0.9 m/s Max PG 5 mmHg LVOT VTI 0.18 m Mean PG 3 mmHg SV 78 ml Dim Index 0.78 SV index 40 ml/m? ? ? CO 4.3 l/min CI 2.2 l/min/m? ? ? Mitral Valve: MVA 4.3 cm? ? ? MV P 1/2 51 msec Tricuspid Valve and estimated PA pressures: TR Vmax 2.6 m/s TAPSE 2.5 cm TR maxG 27 mmHg . This study was interpreted by an [facility] accredited facility. Final Tej Garcia MD ECHO ORD * EXTENDED HOLTER (02/08/2024) Tej Garcia MD CARDIAC SERVICE S ORD * (ABNORMAL) PROTEIN/CREAT RATIO,URINE (01/03/2024 9:15 AM WAREHOUSE MAN) PROTEIN QUANT,RAND URINE 15(H) 1 - 14 mg/dL 01/03/2024 10:12 AM WAREHOUSE MAN [facility] CREAT,RANDOM URINE 111.0 28.0 - 217.0 mg/dL 01/03/2024 10:12 AM WAREHOUSE MAN [facility] PROT/CREAT RATIO,UR 0.1 <0.2 01/03/2024 10:12 AM WAREHOUSE MAN [facility] Urine URINE SPECIMEN / Unknown Non-Blood / Unknown 01/03/2024 9:15 AM WAREHOUSE MAN 01/03/2024 9:15 AM WAREHOUSE MAN Karishma Lemons NP URINE [facility] [address] [place] [address] * URINE ALBUMIN TO CREATININE RATIO, RANDOM (01/03/2024 9:14 AM WAREHOUSE MAN) ALB RAND URINE <12.0 mg/L 01/03/2024 2:46 PM WAREHOUSE MAN [facility] CREATININE,URINE 1.20 g/L 01/03/20 24 2:46 PM WAREHOUSE MAN [facility] ALBUMIN TO CREATININE RATIO,RAND UR 01/03/2024 2:46 PM WAREHOUSE MAN [facility] Comment:Urine Albumin below measurement range, unable to calculate. Urine URINE SPECIMEN / Unknown Non-Blood / Unknown 01/03/2024 9:14 AM WAREHOUSE MAN 01/03/2024 9:14 AM WAREHOUSE MAN Narrative [facility] - 01/03/2024 2:46 PM WAREHOUSE MAN If Albumin to Creatinine Ratio is elevated, consider the following: ? Elevations seen with incipient nephropathy associated ?? with diabetes mellitus or hypertension. Stress, exercise,hematuria, ?? and urinary tract infection may also produce elevated results. If clinically indicated, confirm with ?24 Hour Albumin to Creatinine Ratio. ?? Karishma Lemons NP URINE [facility] [address] * ALBUMIN (01/03/2024 8:29 AM WAREHOUSE MAN) ALBUMIN 4.1 4.0 - 4.9 g/dL 01/03/2024 9:50 AM WAREHOUSE MAN [facility] Blood BLOOD SPECIMEN / Unknown Venipuncture / Unknown 01/03/2024 8:29 AM WAREHOUSE MAN 01/03/2024 8:30 AM WAREHOUSE MAN Karishma Lemons NP CHEMISTRY [place] [address] [place] [address] * (ABNORMAL) BASIC METABOLIC PANEL (01/03/2024 8:29 AM WAREHOUSE MAN) SODIUM 142 136 - 145 mmol/L 01/03/2024 9:50 AM WAREHOUSE MAN [facility] POTASSIUM 4.2 3.5 - 5.1 mmol/L 01/03/2024 9:50 AM [employer]HOUSE [employer] [facility] CHLORIDE 102 98 - 107 mmol/L 01/03/2024 9:50 AM [employer] [facility] CO2,TOTAL 30(H) 22 - 29 mmol/L 01/03/2024 9:50 AM [employer] [facility] ANION GAP 10 5 - 18 01/03/2024 9:50 AM [employer] [facility] GLUCOSE 104(H) 70 - 99 mg/dL 01/03/2024 9:50 AM [facility] CALCIUM 9.9 8.8 - 10.2 mg/dL 01/03/2024 9:50 AM [facility] BUN 34(H) 8 - 23 mg/dL 01/03/2024 9:50 AM [facility] CREATININE 1.03(H) 0.50 - 0.90 mg/dL 01/03/2024 9:50 AM [facility] BUN/CREAT RATIO 33(H) 10 - 20 9:50 AM [facility] eGFR 54(L) >90 mL/min/1.7 3m2 01/03/2024 9:50 AM [facility] Comment:As of 2022, eG FR is calculated by the CKD-EPI creatinine equation without race adjustment. ??eGFR can be influenced by muscle mass, exercise, and diet. ??The reported eGFR is an estimation only and is only applicable if the renal function is stable. Blood BLOOD SPECIMEN / Unknown Venipuncture / Unknown 01/03/2024 8:29 AM [employer]HOUSE [employer] 01/03/2024 8:30 AM [employer]HOUSE MAN Karishma Lemons NP CHEMISTRY [place] [id number] * VITAMIN D 25 (DEFICIENCY) (12/20/2023 9:51 AM WAREHOUSE MAN) [facility] VITAMIN D TOTAL 27.2 20.0 - 80.0 ng/mL 12/20/2023 2:11 PM [employer]HOUSE MAN [facility] Blood BLOOD SPECIMEN / Unknown Venipuncture / Unknown 12/20/2023 9:51 AM [employer]HOU[employer] 12/20/2023 9:51 AM [employer]HOUSE MAN Narrative [facility] - 12/20/2023 2:11 PM W[employer]HOUSE MAN ? Vitamin D Status Deficiency: ? <20 ng/mL Insufficiency: ?20-29 ng/mL Sufficiency: ?30-80 ng/mL Possible Toxicity: ??>80 ng/mL Based on [place] [employer] recommendations Biotin supplements may cause clinically significant interference for this test assay. ??If interference is suspected, it is strongly recommended that biotin is discontinued for at least one week prior to retesting. Ace CHENG SEND OUTS [facility] [address] [place] [address], * ECHO FRANCESCA WO CONTRAST W COLOR W LTD DOPPLER (12/10/2023 12:12 PM [employer]HOUSE MAN) EJECTION FRACTION 35 - 40% Anatomical Region Laterality Modality Ultrasound 12/10/2023 12:1 0 PM [employer] Narrative 12/10/2023 1:20 PM [employer] TRANSESOPHAGEAL ECHOCARDIOGRAM KAYLIE DAVIDSON ? Accession#: ?? [id number] : ?1940 83 years Study Date: ?? 12/10/2023 12:10:00 PM Gender: F ?BP: ? 138/76 mmHg Height: 163.00 cm ?BSA: ?1.99 m? ? ? Weight: 94.00 kg ? Tech: ? [id number] ? Referring MD: ISATU PARISH Site: ? [facility] Reading Location: [facility] Patient Location: Outpatient. Procedure: FRANCESCA. Indication for study: DCCV Cardiac Rhythm: Irregular.Study quality: Final Impressions: 1. Moderately enlarged left atrium. 2. Mildly increased left ventricular size, moderate decreased global systolic function with an estimated EF of 35 - 40%. 3. Right ventricular cavity size is normal, global systolic RV function is normal. 4. The mitral valve is sclerotic, mild mitral regurgitation. 5. Mild-moderate tricuspid regurgitation. 6. Decreased left atrial appendage flow velocities. 7. No evidence of thrombus present in the left atrial appendage. 8. Trivial pericardial effusion. 9. No left atrial appendage thrombus seen. Comparison Compared to prior exam images of 10/19/2023, there has been no significant change. Procedure comments: Indications, goals, risks and alternatives of the procedure were discussed with the patient and informed consent was obtained. The patient received sedation of intravenous Propofol and general anesthesia. See procedural record for anesthesia details. Prior to performance of procedure, time out was called to accurately identify the patient and procedure. The Foxtrot probe was passed without difficulty. FRANCESCA was performed. The patient developed no apparent complications during the procedure. Estimated Blood Loss: 0 ml Chamber Sizes and Function Mildly increased left ventricular size, moderate decreased global systolic function with an estimated EF of 35 - 40%. Left atrial size is moderately enlarged. The left atrial appendage is well visualized and there is no evidence of thrombus present. Decreased left atrial appendage flow velocities. Right ventricular cavity size is normal, global systolic RV function is normal. RV wall thickness is normal. The right atrium is mildly enlarged. The pulmonary artery is of normal size and origin. The sinus of Valsalva is normal sized. The ascending aorta is normal sized. Aortic arch is normal sized with no significant plaque visualized. Descending aorta is normal sized with no significant plaque visualized. Valves, RV Pressures and Diastolic Function The aortic valve is trileaflet, not evaluated for stenosis and no regurgitation. The mitral valve is sclerotic, mild mitral regurgitation. The tricuspid valve is normal in structure. Tricuspid regurgitation is mild-moderate. The pulmonic valve is normal. No pulmonary regurgitation. Masses, Effusion, Shunts There is trivial pericardial effusion. Atrial septum is intact. Agitated saline injection not done. MEASUREMENTS AND CALCULATIONS 2-D Measurements and LV Function: HR 96 bpm . This study was interpreted by an [facility] accredited facility. ??Final ?? Procedure Note Melany You MD - 12/10/2023 TRANSESOPHAGEAL ECHOCARDIOGRAM KAYLIE DAVIDSON : 1940 83 years Study Date: 12/10/2023 12:10:00 PM Gender: F BP: 138/76 mmHg Height: 163.00 cm BSA: 1.99 m? ? ? Weight: 94.00 kg Tech: PRASHANTH Referring MD: ISATU PARISH Site: [facility] Reading Location: [facility] Patient Location: Outpatient. Procedure: FRANCESCA. Indication for study: DCCV Cardiac Rhythm: Irregular.Study quality: Final Impressions: 1. Moderately enlarged left atrium. 2. Mildly increased left ventricular size, moderate decreased globalsystolic function with an estimated EF of 35 - 40%. 3. Right ventricular cavity size is normal, global systolic RV functionis normal. 4. The mitral valve is sclerotic, mild mitral regurgitation. 5. Mild-moderate tricuspid regurgitation. 6. Decreased left atrial appendage flow velocities. 7. No evidence of thrombus present in the left atrial appendage. 8. Trivial pericardial effusion. 9. No left atrial appendage thrombus seen. Comparison Compared to prior exam images of 10/19/2023, there has been no significantchange. Procedure comments: Indications, goals, risks and alternatives of theprocedure were discussed with the patient and informed consent wasobtained. The patient received sedation of intravenous Propofol andgeneral anesthesia. See procedural record for anesthesia details. Prior toperformance of procedure, time out was called to accurately identify thepatient and procedure. The Foxtrot probe was passed without difficulty.FRANCESCA was performed. The patient developed no apparent complications duringthe procedure. Estimated Blood Loss: 0 ml Chamber Sizes and Function Mildly increased left ventricular size, moderate decreased global systolicfunction with an estimated EF of 35 - 40%. Left atrial size is moderatelyenlarged. The left atrial appendage is well visualized and there is noevidence of thrombus present. Decreased left atrial appendage flowvelocities. Right ventricular cavity size is normal, global systolic RVfunction is normal. RV wall thickness is normal. The right atrium ismildly enlarged. The pulmonary artery is of normal size and origin. Thesinus of Valsalva is normal sized. The ascending aorta is normal sized.Aortic arch is normal sized with no significant plaque visualized.Descending aorta is normal sized with no significant plaque visualized. Valves, RV Pressures and Diastolic Function The aortic valve is trileaflet, not evaluated for stenosis and noregurgitation. The mitral valve is sclerotic, mild mitral regurgitation.The tricuspid valve is normal in structure. Tricuspid regurgitation ismild-moderate. The pulmonic valve is normal. No pulmonary regurgitation. Masses, Effusion, Shunts There is trivial pericardial effusion. Atrial septum is intact. Agitatedsaline injection not done. MEASUREMENTS AND CALCULATIONS 2-D Measurements and LV Function: HR 96 bpm . This study was interpreted by an [facility] accredited facility. 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 POTASSIUM, POCT 3.4(L) 3.5 - 5.0 mmol/L 12/13/2023 2:54 AM [employer] [facility] Blood BLOOD SPECIMEN / Unknown 12/10/2023 10:43 AM [employer]HOUSE MAN 12/13/2023 2:54 AM [employer]HOUSE MAN Isatu Parish NP CHEMISTRY [facility] [address] [id number], * XR DXA BONE DENSITY 2 SITES AXIAL (09/22/2023 8:22 AM CDT) Anatomical Region Laterality Modality Spine, HIPS, HIPL, HIPR Computed Radiography 09/22/2023 8:22 AM CDT Impressions 09/22/2023 8:54 AM CDT OSTEOPOROSIS. T score meets the WHO criteria for osteoporosis at one or more measured sites. The risk of osteoporotic fracture increases approximately two-fold for each standard deviation decrease in T-score. Narrative 09/22/2023 8:54 AM CDT For Patients: As a result of the Century Cures Act, medical imaging exams and procedure reports are released immediately into your electronic medical record. You may view this report before your referring provider. If you have questions, please contact your health care provider. EXAM: XR DXA BONE DENSITY 2 SITES AXIAL LOCATION: [facility] DATE: 09/22/2023 INDICATION: Low bone density, osteopenia. DEMOGRAPHICS: Age- 83 years. Gender- Female. Menopausal status- Postmenopausal. COMPARISON: No prior studies available on the current scanner. TECHNIQUE: Dual-energy x-ray absorptiometry (DXA) performed with routine technique. FINDINGS: DXA RESULTS -Lumbar Spine: L1-L4: BMD: 0.999 g/cm2. T-score: -1.5. Z-score: -0.6. Degenerative change may artifactually increase BMD. -RIGHT Hip Total: BMD: 0.828 g/cm2. T-score: -1.4. Z-score: 0.0. -RIGHT Hip Femoral neck: BMD: 0.689 g/cm2. T-score: -2.5. Z-score: -0.9. -LEFT Hip Total: BMD: 0.850 g/cm2. T-score: -1.3. Z-score: 0.2. -LEFT Hip Femoral neck: BMD: 0.784 g/cm2. T-score: -1.8. Z-score: -0.2. WHO T-SCORE CRITERIA -Normal: T score at or above -1 SD -Osteopenia: T score between -1 and -2.5 SD -Osteoporosis: T score at or below -2.5 SD The World Health Organization (WHO) criteria is applicable to perimenopausal females, postmenopausal females, and men aged 50 years or older. FRACTURE RISK -The FRAX risk calculator is not applicable due to osteoporosis. RECOMMENDATIONS The patient's BMD is consistent with osteoporosis, and he/she is at increased fracture risk. If not currently being treated for low BMD, this would merit treatment according to the Bone Health and Osteoporosis Foundation. Procedure Note Jose Aldrich MD - 09/22/2023 For Patients: As a result of the Cures Act, medical imagingexams and procedure reports are released immediately into your electronicmedical record. You may view this report before your referring provider.If you have questions, please contact your health care provider. EXAM: XR DXA BONE DENSITY 2 SITES AXIAL LOCATION: [facility] DATE: 09/22/2023 INDICATION: Low bone density, osteopenia. DEMOGRAPHICS: Age- 83 years. Gender- Female. Menopausal status-Postmenopausal. COMPARISON: No prior studies available on the current scanner. TECHNIQUE: Dual-energy x-ray absorptiometry (DXA) performed with routinetechnique. FINDINGS: DXA RESULTS -Lumbar Spine: L1-L4: BMD: 0.999 g/cm2. T-score: -1.5. Z-score: - 0.6.Degenerative change may artifactually increase BMD. -RIGHT Hip Total: BMD: 0.828 g/cm2. T-score: -1.4. Z-score: 0.0. -RIGHT Hip Femoral neck: BMD: 0.689 g/cm2. T-score: -2.5. Z-score: -0.9. -LEFT Hip Total: BMD: 0.850 g/cm2. T-score: -1.3. Z-score: 0.2. -LEFT Hip Femoral neck: BMD: 0.784 g/cm2. T-score: -1.8. Z-score: -0.2. WHO T-SCORE CRITERIA -Normal: T score at or above -1 SD -Osteopenia: T score between -1 and -2.5 SD -Osteoporosis: T score at or below -2.5 SD The World Health Organization (WHO) criteria is applicable toperimenopausal females, postmenopausal females, and men aged 50 years orolder. FRACTURE RISK -The FRAX risk calculator is not applicable due to osteoporosis. RECOMMENDATIONS The patient's BMD is consistent with osteoporosis, and he/she is atincreased fracture risk. If not currently being treated for low BMD, thiswould merit treatment according to the Bone Health and OsteoporosisFoundation. IMPRESSION: OSTEOPOROSIS. T score meets the WHO criteria for osteoporosis at one ormore measured sites. The risk of osteoporotic fracture increasesapproximately two-fold for each standard deviation decrease in T-score. Ace CHENG DEXA from Last 3 Months or Most Recently Relevant to Health Maintenance Advance Directives * Full Code (Latest Code Status on File) Date Activated Date Inactivated Comments 12/10/2023 11:54 AM 12/10/2023 4:25 PM Question Answer Comments Code Status Discussion: Unable to Assess Preferences, Provider to review later * Full Code Date Activated Date Inactivated Comments 08/04/2021 10:49 AM 08/04/2021 2:28 PM Question Answer Comments Code Status Discussion: Not Discussed Care Teams Ironer Relationship Specialty Start Date End Date Ace Sumner PA PCP - General 01/10/10
--- OUTSIDE RECORDS SUMMARY | 2024-03-09 20:47 | XMS_ITS | Data Portability ---
Author Name Unknown Address [address] [place] [address] Phone [phone] Organization [facility], [facility] Address [address] [place] [address] Assessment No assessment recorded. Plan of Treatment Reminders Order Date Submit Date Provider Last Modified By Organization Details Last Modified Time Details Appointments None recorded. Lab urinalysis, dipstick 2022 023 [email or web address] 9 [facility], [address], [address], [place], [address], 3 09:47:48 urinalysis, dipstick 2021 022 [email or web address] [facility], [address], [address], [place], [address], 2 11:23:03 Referral None recorded. Procedures bladder scan (PROC) 2021 022 [facility], [address], [address], [place], [address], 2 12:08:43 Surgeries None recorded. Imaging None recorded. Medication Orders Macrobid 100 mg capsule 2022 023 [id number], [address] [place], [place], [id number], 10:01:43 cephalexin 500 mg capsule 2021 022 [facility] #[id number], [address] [facility], [place], [place], [id number], 09:39:55 Patient TargetsNo targets recorded. Patient Instructions Encounter Date Encounter Id Patient Instructions Last Modified By Organization Details Last Modified Time 02/11/2023 [id number] will send rx for 10 days macrobid and continue gemtesa, rtc 3 months. [email or web address] Not available 02/11/2023 10:02:54 11/19/2022 [id number] will send UC today and start on keflex pending results. trial of gemtesa and plan recheck in 6 weeks for UA and possible cystoscopy. [email or web address] Not available 11/19/2022 11:31:10 Reason for Referral None Reported. Results Created Date Observation Date Name Description Value Unit Range Abnormal Flag LastModifiedBy Organization Detail LastModifiedTime 11/19/20 22 11/19/2022 urina lysis , dipst ick pH-Status 5.5 Not Available [address], [place], [place], [address], 11/19/2022 11:18:10 11/19/20 22 11/19/2022 urina lysis , dipst ick Nitrates-Sta tus positi ve Not Available [address], [place], [place], [address], 11/19/2022 11:18:10 11/19/20 22 11/19/2022 urina lysis , dipst ick Blood-Status Trace Not Available [address], [place], [place], [address], 11/19/2022 11:18:10 11/19/20 22 11/19/2022 urina lysis , dipst ick Leuko-Status Small Not Available [address], [place], [address], 11/19/2022 11:18:10 11/19/2011/19/2022 bladd er scan (PROC ) Volume (in mL) 5ml Not Available [address], [place], [address], 11/19/2022 11:29:40 02/12/20 23 02/11/2023 urina lysis , dipst ick pH-Status 6.0 Not Available [address], [place], [address], 02/11/2023 09:40:41 02/12/20 23 02/11/2023 urina lysis , dipst ick Nitrates-Sta tus positi ve Not Available [address], [place], [address], 02/11/2023 09:40:41 02/12/20 23 02/11/2023 urina lysis , dipst ick Blood-Status Trace Not Available [address], [place], [address], 02/11/2023 09:40:41 02/12/20 23 02/11/2023 urina lysis , dipst ick Leuko-Status Modera te Not Available [address], [place], [address], 02/11/2023 09:40:41 11/19/20 22 11/19/2022 bladd er scan (PROC ) No observ ation record ed. BARCODE Not Available 11/19/2022 14:26:40 Result Notes None recorded. Problems Name Status Onset Date Resolution Date Notes Provider Name and Address Organization Details Recorded Time Recurrent urinary tract infection Active 11/19/20 22 Julius Henry MD [address] [place] [address],[address], [address], [facility] 11/19/2022 11:31:43 Incontinence Active 11/19/20 22 Julius Henry MD [address] [place] [address],[address], [address], [facility] 11/19/2022 11:31:44 Problem Notes None recorded. Procedures Surgical History Date Name Laterality Status Provider Name and Address Organization Details Recorded Time 02/12/20 23 Cystoscopy- female completed Julius Henry MD [address] [place] [address],[address], [address], [facility] 02/11/2023 10:02:26 02/12/20 23 [email or web address]/11/[facility] 09:40:37 11/19/20 22 Bladder Scan completed Julius Henry MD [address] [place] [address],[address] [place] [address], [address], [facility] 11/19/2022 11:17:58 tonsillectomy completed Julius Henry MD [address] [place] [address],[address] [place] [address], [address], [facility] 11/19/2022 11:16:00 Appendectomy completed Julius Henry MD [address] [place] [address],[address], [address], [facility] 11/19/2022 11:16:05 Partial Hysterectomy completed Julius Henry MD [address] [place] [address],[address], [address], [facility] 11/19/2022 11:16:13 stapedectomy completed Julius Henry MD [address] [place] [address],[address], [address], [facility] 11/19/2022 11:17:05 Imaging Results Imaging Date Name Status LastModified by Organiz ation Details LastModified Time 11/19/2022 bladder scan (PROC) completed BARCODE Information not available 11/19/2022 14:26:40 Procedure Notes None recorded. Medical Equipment None Reported. Allergies No known drug allergies Medications Name Sig Start Date Stop Date Status Note LastModified by Organization Details LastModified Time atorvastati n 20 mg tablet active Not Available Not Available Not Available albuterol sulfate 1.25 mg/3 mL solution for nebulizatio n INHALE 3ML VIA A NEBULIZER EVERY 4 HOURS NEEDED FOR WHEEZING. active Not Available Not Available No t Available acetaminoph en 300 mg-codeine 30 mg tablet active Not Available Not Available Not Available cefadroxil 500 mg capsule 11/19 completed Not Available Not Available Not Available cephalexin 500 mg capsule TAKE 1 CAPSULE BY MOUTH THREE TIMES DAILY FOR 10 DAYS 02/11 completed Not Available Not Available Not Available metronidazo le 0.75 % topical cream APPLY EXTERNALL Y TO THE NOSE TWICE DAILY. active Not Available Not Available No t Available metoprolol tartrate 50 mg tablet active Not Available Not Available No t Available ergocalcife rol (vitamin D2) 1,250 mcg (50,000 unit) capsule active Not Available Not Available Not Available Restasis 0.05 % eye drops in a dropperette INSTILL 1 DROP IN BOTH EYES TWICE DAILY active Not Available Not Available No t Available nitrofurant oin monohydrate /macrocryst als 100 mg capsule Take 1 capsule every 12 hours by oral route for 10 days. active Not Available Not Available No t Available hydrochloro thiazide 12.5 mg tablet active Not Available Not Available Not Available Paxlovid 300 mg (150 mg x 2)-100 mg tablets in a dose pack TK 2 NIRMATREL VIR TS AND 1 RITONAVIR T TOGETHER PO BID FOR 5 DAYS BID FOR 5 DAYS active Not Available Not Available No t Available Vitals Date Recorded Body height Body mass index (BMI) Body weight Provider Name and Address Organization Details Last Updated DateTime 11/19/2022 134.62 cm 53.8 kg/m2 40361.36 g Julius Henry MD [address] [place] [address],[address], [place], [address] 11/19/2022 11:13:45 Date Recorded Body height Provider Name an d Address Organization Details Last Updated DateTime 02/11/2023 134.62 cm Yaa [email or web address] [facility] 02/11/2023 09:39:47 Date Recorded Body mass index (BMI) Body weight Provider Name and Address Organization Details Last Updated DateTime 02/11/2023 52.6 kg/m2 90767.4 g Julius Henry MD [address], [place], [address] 02/11/2023 09:46:57 Social History Question Answer Notes LastModified by Organizat ion Details LastModified Time Tobacco Smoking Status Never Smoker Julius Henry MD [address], [place], [address], [facility] 11/19/2022 11:15:48 What Is Your Level Of Alcohol Consumption? None [email or web address] Information not available 11/19/2022 What Is Your Level Of Caffeine Consumption? Occasional Information not available 11/19/2022 What Was The Date Of Your Most Recent Tobacco Screening? 11/19/2022 [email or web address] Information not available 11/19/2022 Sex: Female Functional Status None recorded. Mental Status None recorded. Family History Relationship Description Onset Age of this Age Resolved Age Notes Father Myocardial infarction Paternal Grandfather Myocardial infarction Maternal Grandmother Acute stroke Brother Acute stroke Sister Acute stroke Medical History Condition Response Diabetes N Sexually Transmitted Infection N Other N Bleeding Disorder N High Blood Pressure Y Kidney Stones N Cancer N Lung Disease N Depression N High Cholesterol Y GERD/Acid Reflux N Heart Disease N Gynecological History Statement/Question Response Sexually Active? N Obstetrics History GPAL:G 1 P 0 0 0 0 Past Encounters Encounter ID Performer Location Encounter Start Date Encounter Closed Date Diagnosis/Indication Diagnosis SNOMED-CT Code [id number] [facility],[address] [address] 11/19/2022 10:57:49 11/27/2022 09:19:27 Incontinence [id number] Recurrent urinary tract infection [id number] Julius Henry MD [facility] [address] [place] [address] 02/11/2023 09:11:28 02/16/2023 11:56:36 Incontinence [id number] Recurrent urinary tract infection [id number] Health Concerns Section Related Observation LastModified by Organization Detai ls LastModified Time None Recorded Concern Status LastModified by Organization Details LastModified Time None Recorded Advance Directives Directive None Recorded Payers Encounter Date Sequence Insurance Name Policy Number Policy Lind Covered Member ID Lind Member ID Guarantor Name 02/11/2023 1 [place] [employer] Kaylie H Karlsrud [id number] Kaylie H Karlsrud 02/11/2023 2 [place] [id number] Kaylie H Karlsrud [id number] Kaylie H Karlsrud 11/19/2022 1 [place] [employer] Kaylie H Karlsrud [id number] Kaylie H Karlsrud 11/19/2022 3 [place] [id number] Kaylie H Karlsrud [id number] Kaylie H Karlsrud Notes Date Note Type Note Provider Name and Address Organization Details Recorded Time 11/19/2022 text/html HPI Notes: seeing for recurrent UTI usually e coli, and mixed urinary incontinence. leaks with cough or sneeze and also with urge to void has trouble holding and dribbles on way to [place] and some leaking while asleep. , wearing pads all the time about 1/day. UA today look infected so will send UC. PVR 5ml today. Julius Henry MD [address] [place] [address],[address], [address], [facility] 11/19/2022 11:41:41 02/11/2023 text/html HPI Notes: here for cysto today. doing better with gemtesa UA positive. Julius Henry MD [address] [place] [address],[address], [address], [facility] 02/11/2023 10:03:19 OBGyn Episode No OBEpisode recorded.
== END 2024-03-09 20:43 | disposition home or self-care (01) ==
PROVIDERS: Visit Provider Internal Medicine
DX: G47.33 Obstructive sleep apnea (adult) (pediatric) (principal)
CPT/HCPCS: 95811